=== PATIENT | female | born 1945 | race Caucasian/White ===

== ENCOUNTER → 2016-04-24 | Outpatient (CLI) | payer MEDICARE, OTHER | LOC: GMAB 10:37 | PROVIDERS: ATTEND Family Medicine | DX: E89.0 Postprocedural hypothyroidism (principal) ==

== ENCOUNTER → 2017-01-04 | Outpatient (CLI) | payer MEDICARE, OTHER | LOC: GMA 13:17 | PROVIDERS: ATTEND Nurse Practitioner Acute Care | DX: R30.0 Dysuria (principal); E89.0 Postprocedural hypothyroidism; E89.89 Other postprocedural endocrine and metabolic complications and disorders; Z01.419 Encounter for gynecological examination (general) (routine) without abnormal findings ==

== ENCOUNTER → 2017-05-23 | Outpatient (CLI) | payer MEDICARE, OTHER | LOC: GMAB 11:42 | PROVIDERS: ATTEND Family Medicine | DX: E89.0 Postprocedural hypothyroidism (principal) ==

== ENCOUNTER → 2018-06-05 | Outpatient (CLI) | payer MEDICARE, OTHER | LOC: GMAE 10:39 | PROVIDERS: ATTEND Family Medicine | DX: E89.0 Postprocedural hypothyroidism (principal) ==

== ENCOUNTER 2019-04-12 21:05 | Emergency (ER) | payer MEDICARE, OTHER ==
[2019-04-12 21:23] VITALS: TEMP 97.7; O2SAT 97
[2019-04-12] MEDS ORDERED: KETOROLAC TROMETHAMINE INJ 30 MG/ML VIAL IM ONE (21:37)
[2019-04-12] MEDS ORDERED: MORPHINE SULFATE INJ 10 MG/ML VIAL IM ONE (21:37)
[2019-04-12] MEDS ORDERED: MORPHINE SULFATE INJ 10 MG/ML VIAL ONE (21:39)
[2019-04-12] MEDS ORDERED: KETOROLAC TROMETHAMINE INJ 30 MG/ML VIAL ONE (21:39)
--- NOTE | 2019-04-12 22:16 | CT ---
EXAM: CT Head Without Intravenous Contrast CLINICAL HISTORY: The patient is 73 years old and is Female; headache TECHNIQUE: Axial computed tomography images of the head/brain without intravenous contrast. Sagittal and coronal reformatted images were created and reviewed. This CT exam was performed using one or more of the following dose reduction techniques: automated exposure control, adjustment of the mA and/or kV according to patient size, and/or use of iterative reconstruction technique. COMPARISON: No relevant prior studies available. FINDINGS: BRAIN: Unremarkable. The nicole-white matter differentiation is preserved . No hemorrhage. No significant white matter disease. No edema. No extra-axial fluid collections. VENTRICLES: Unremarkable. No ventriculomegaly. BONES/JOINTS: No acute fracture. SOFT TISSUES: Unremarkable. SINUSES: Unremarkable as visualized. No acute sinusitis. MASTOID AIR CELLS: Unremarkable as visualized. No mastoid effusion. ORBITS: Unremarkable as visualized. IMPRESSION: No acute intracranial findings. Electronically signed by: Polly Garcia MD 04/12/2019 10:14 PM [facility]
--- NOTE | 2019-04-12 22:42 | ED.PDOC ---
History of Present Illness - General Chief Complaint: Headache Stated Complaint: HTN, headache Time Seen by Provider: 04/12/19 21:37 - History of Present Illness Initial Comments: c/o having headaches since 1 week , frontal , radiating to back with light bothering her , she also noticed high blood pressure, she does not take any meds Timing/Duration: 1 week Severity: moderate Improving Factors: nothing Worsening Factors: nothing Associated Symptoms: denies symptoms Allergies/Adverse Reactions: Allergies NO KNOWN ALLERGY Allergy (Verified 04/12/19 21:23) Home Medications: Ambulatory Orders Albuterol Sulfate [Ventolin Hfa] 1 puff INH Q4HR PRN 04/12/19 Naproxen [Naprosyn] 500 mg PO BID #10 tab 04/12/19 RX: Levothyroxine Sodium 150 mcg PO DAILY 04/12/19 RX: amLODIPine BESYLATE [Norvasc] 5 mg PO QDPC #14 tab 04/12/19 Rosuvastatin Calcium 10 mg PO 04/12/19 Sulfamethoxazole-Trimethoprim [Bactrim Ds 800-160 mg] 1 tab PO BID #14 tab 04/12/19 Review of Systems - Review of Systems Constitutional: States: no symptoms reported EENTM: States: no symptoms reported Respiratory: States: no symptoms reported Cardiology: States: no symptoms reported Gastrointestinal/Abdominal: States: no symptoms reported Genitourinary: States: no symptoms reported Musculoskeletal: States: no symptoms reported Skin: States: no symptoms reported Neurological: States: see HPI Endocrine: States: no symptoms reported Hematologic/Lymphatic: States: no symptoms reported Past Medical History (General) - Patient Medical History Hx Congestive Heart Failure: No Hx Thyroid Disease: Yes Hx Diabetes: No Surgical History: appendectomy, tonsillectomy, Hysterectomy - Vaccination History Hx Influenza Vaccination: No Hx Pneumococcal Vaccination: Yes - Female History Patient is a Female of Child Bearing Age (10 -59 yrs old): No Family Medical History - Family History Father Family History: Unknown Physical Exam - Physical Exam General Appearance: Alert, Comfortable, Well Developed, Well Groomed, Well Hydrated, Well Nourished Eye Exam: bilateral normal Ears, Nose, Throat: hearing grossly normal, normal ENT inspection Neck: non-tender, full range of motion, supple Respiratory: chest non-tender, lungs clear, normal breath sounds, no respiratory distress, no accessory muscle use Cardiovascular/Chest: regular rate, rhythm, no edema, no gallop Gastrointestinal/Abdominal: non tender, soft Back Exam: no CVA tenderness, no vertebral tenderness Extremity: non-tender, normal inspection, no pedal edema Neurologic: no motor/sensory deficits, alert, normal mood/affect, oriented x 3 Skin Exam: normal color Lymphatic: no adenopathy Progress - Results/Orders Results/Orders: 04/12/19 21:37 EKG Assessment ONCE 04/12/19 21:45 EKG STAT Laboratory Results WBC 7.1 K/mm3 (4.8-10.8) 04/12/19 21:54 RBC 4.53 M/mm3 (4.20-5.40) 04/12/19 21:54 Hgb 14.7 gm/dL (12.0-16.0) 04/12/19 21:54 Hct 43.8 % (36.0-47.0) 04/12/19 21:54 MCV 96.8 fl (81.0-99.0) 04/12/19 21:54 MCH 32.4 pg (27.0-31.0) H 04/12/19 21:54 MCHC 33.5 g/dL (33.0-37.0) 04/12/19 21:54 RDW 13.9 % (11.5-14.5) 04/12/19 21:54 Plt Count 185 K/mm3 (130-400) 04/12/19 21:54 MPV 8.0 fl (7.40-10.4) 04/12/19 21:54 Absolute Neuts (auto) 4.40 K/uL (1.8-6.8) 04/12/19 21:54 Absolute Lymphs (auto) 1.90 K/uL (1.0-3.4) 04/12/19 21:54 Absolute Monos (auto) 0.50 K/uL (0.2-0.8) 04/12/19 21:54 Absolute Eos (auto) 0.20 K/uL (0.0-0.4) 04/12/19 21:54 Absolute Basos (auto) 0.10 K/uL (0.0-0.1) 04/12/19 21:54 Neutrophils % 62.3 % (42.0-78.0) 04/12/19 21:54 Lymphocytes % 26.3 % (20.0-50.0) 04/12/19 21:54 Monocytes % 7.0 % (2.0-9.0) 04/12/19 21:54 Eosinophils % 3.1 % (1.0-5.0) 04/12/19 21:54 Basophils % 1.3 % (0.0-2.0) 04/12/19 21:54 Sodium 134 mmol/L (135-145) L 04/12/19 21:54 Potassium 4.1 mmol/L (3.6-5.0) 04/12/19 21:54 Chloride 102 mmol/L (101-111) 04/12/19 21:54 Carbon Dioxide 23 mmol/L (21-31) 04/12/19 21:54 Anion Gap 13.1 (12-18) 04/12/19 21:54 BUN 14 mg/dL (7-18) 04/12/19 21:54 Creatinine 0.64 mg/dL (0.6-1.3) 04/12/19 21:54 BUN/Creatinine Ratio 21.9 (10-20) H 04/12/19 21:54 Random Glucose 99 mg/dL (70-105) 04/12/19 21:54 Serum Osmolality 268.7 mOsm/L (275-295) L 04/12/19 21:54 Calcium 8.7 mg/dL (8.4-10.2) 04/12/19 21:54 Total Bilirubin 0.6 mg/dL (0.2-1.0) 04/12/19 21:54 AST 20 IU/L (10-42) 04/12/19 21:54 ALT 17 IU/L (10-60) 04/12/19 21:54 Alkaline Phosphatase 67 IU/L (42-121) 04/12/19 21:54 Serum Total Protein 7.2 gm/dL (6.4-8.2) 04/12/19 21:54 Albumin 4.3 g/dl (3.2-5.5) 04/12/19 21:54 Globulin 2.9 gm/dL (2.3-3.5) 04/12/19 21:54 Albumin/Globulin Ratio 1.5 (1.1-1.9) 04/12/19 21:54 - EKG/XRAY/CT EKG: Sinus, no ST T wave changes Departure - Departure Clinical Impression: Headache, HTN (hypertension), Sinus headache Time of Disposition: 22:38 Disposition: Discharge to Home or Self Care Condition: Good Departure Forms: ED Discharge - Pt. Copy, Patient Portal Self Enrollment Instructions: DI for Headache Diet: resume usual diet Activity: increase activity as tolerated Referrals: JUAN C ROMAN MD [Primary Care Provider] - 1-2 Weeks Prescriptions: RX: amLODIPine BESYLATE [Norvasc] 5 mg PO QDPC #14 tab Naproxen [Naprosyn] 500 mg PO BID #10 tab Sulfamethoxazole-Trimethoprim [Bactrim Ds 800-160 mg] 1 tab PO BID #14 tab Home Medications: Ambulatory Orders Albuterol Sulfate [Ventolin Hfa] 1 puff INH Q4HR PRN 04/12/19 Naproxen [Naprosyn] 500 mg PO BID #10 tab 04/12/19 RX: Levothyroxine Sodium 150 mcg PO DAILY 04/12/19 RX: amLODIPine BESYLATE [Norvasc] 5 mg PO QDPC #14 tab 04/12/19 Rosuvastatin Calcium 10 mg PO 04/12/19 Sulfamethoxazole-Trimethoprim [Bactrim Ds 800-160 mg] 1 tab PO BID #14 tab 04/12/19
[2019-04-12 22:53] VITALS: BP 174/99
== END 2019-04-12 22:53 | disposition home or self-care (01) ==
LOC: ER 21:05
DX: R51 Headache (principal); I10 Essential (primary) hypertension; E07.9 Disorder of thyroid, unspecified; Z79.899 Other long term (current) drug therapy
CPT/HCPCS: 70450; 80053; 85025; 93005; J1885; J2270

== ENCOUNTER → 2019-08-04 | Outpatient (CLI) | payer MEDICARE, OTHER | LOC: GMAE 11:33 | PROVIDERS: ATTEND Family Medicine | DX: E89.0 Postprocedural hypothyroidism (principal); I10 Essential (primary) hypertension; E78.2 Mixed hyperlipidemia ==